=== PATIENT | female | born 1940 | race Caucasian/White ===

== ENCOUNTER 2018-06-19 12:39 | Emergency (ER) | payer MEDICARE ==
--- NOTE | 2018-06-19 14:31 | Emergency Department Record ---
History of Present Illness - General Chief complaint: Extremity Problem Stated complaint: RT HIP/LEG PAIN Time Seen by Provider: 06/19/18 14:13 Mode of Arrival: Ambulatory - History of Present Illness Initial comments: right hip pain and buzzy in the head and she feels it is in her whole body and slight headache Onset/Timin -: Days(s) Location: Left, Right Radiation: Proximal Severity scale (1-10): 10 Quality: Aching, Sharp Consistency: Getting worse Improves with: Nothing Worsens with: Nothing - Related Data Home Medications Medication Instructions Recorded Confirmed Last Taken Biotin 10,000 mcg PO DAILY 06/19/18 06/19/18 1 Day Ago ~06/18/18 Marcial/D3/Mag11/Zinc/Regulatory Auditor/Natan/Bor 1 each PO DAILY 06/19/18 06/19/18 1 Day Ago [Caltrate 600+D Plus Tablet] ~06/18/18 Calcitonin,[place],Synthetic 200 unit NS DAILY 06/19/18 06/19/18 1 Day Ago [Miacalcin] ~06/18/18 Cholecalciferol (Vitamin D3) 2,000 unit PO DAILY 06/19/18 06/19/18 1 Day Ago [Vitamin D3] ~06/18/18 Clopidogrel Bisulfate [Clopidogrel] 75 mg PO DAILY 06/19/18 06/19/18 1 Day Ago ~06/18/18 Cyanocobalamin (Vitamin B-12) 2,500 mcg PO DAILY 06/19/18 06/19/18 1 Day Ago [Vitamin B12] ~06/18/18 Donepezil HCl [Aricept] 5 mg PO DAILY 06/19/18 06/19/18 1 Day Ago ~06/18/18 Memantine HCl [Namenda] 10 mg PO BID 06/19/18 06/19/18 1 Day Ago ~06/18/18 Metoprolol Tartrate 12.5 mg PO DAILY 06/19/18 06/19/18 1 Day Ago ~06/18/18 Nifedipine [Nifedipine ER] 30 mg PO DAILY 06/19/18 06/19/18 1 Day Ago ~06/18/18 Rosuvastatin Calcium 5 mg PO DAILY 06/19/18 06/19/18 1 Day Ago ~06/18/18 Sertraline HCl [Zoloft] 25 mg PO DAILY 06/19/18 06/19/18 1 Day Ago ~06/18/18 Previous Rx's Medication Instructions Recorded Ascorbic Acid/Ascorbate Sodium 500 mg PO DAILY #30 tab.chew 06/19/18 [Vit C-Tamika Hips 500 mg Chew Tb] Ferrous Sulfate 325 mg PO DAILY #30 tab 06/19/18 Prednisone [Prednisone 10Mg] 10 mg PO ASDIR #30 tab 06/19/18 Allergies Allergy/AdvReac Type Severity Reaction Status Date / Time aspirin AdvReac ABDOMINAL Verified 06/19/18 13:54 PAIN Travel Screening - Travel/Exposure Within Last 30 Days Have you traveled within the last 30 days?: No - Travel/Exposure Within Last Year Have you traveled outside the [place] in the last year?: No - Additonal Travel Details Have you been exposed to anyone with a communicable illness?: No - Travel Symptoms Symptom Screening: None Review of Systems Reviewed: No additional complaints except as noted below Constitutional: Reports: As per HPI. Denies: Chills, Fever, Malaise, Night sweats, Weakness, Weight change Eyes: Reports: As per HPI. Denies: Eye discharge, Eye pain, Photophobia, Vision change ENT: Reports: As per HPI. Denies: Congestion, Dental pain, Ear pain, Epistaxis , Hearing loss, Throat pain Respiratory: Reports: As per HPI. Denies: Cough, Dyspnea, Hemoptysis, Stridor, Wheezes Cardiovascular: Reports: As per HPI. Denies: Arrhythmia, Chest pain, Dyspnea on exertion, Edema, Murmurs, Orthopnea, Palpitations, Paroxysmal nocturnal dyspnea, Rheumatic Fever, Syncope Endocrine: Reports: As per HPI. Denies: Fatigue, Heat or cold intolerance, Polydipsia, Polyuria Gastrointestinal: Reports: As per HPI. Denies: Abdominal pain, Constipation, Diarrhea, Hematemesis, Hematochezia, Melena, Nausea, Vomiting Genitourinary: Reports: As per HPI. Denies: Abnormal menses, Discharge, Dyspareunia, Dysuria, Frequency, Hematuria, Incontinence, Retention, Urgency Musculoskeletal: Reports: As per HPI. Denies: Arthralgia, Back pain, Gout, Joint swelling, Myalgia, Neck pain Skin: Reports: As per HPI. Denies: Bruising, Change in color, Change in hair/ nails, Lesions, Pruritus, Rash Neurological: Reports: As per HPI. Denies: Abnormal gait, Confusion, Headache, Numbness, Paresthesias, Seizure, Tingling, Tremors, Vertigo, Weakness Psychiatric: Reports: As per HPI. Denies: Anxiety, Auditory hallucinations, Depression, Homicidal thoughts, Suicidal thoughts, Visual hallucinations Hematological/Lymphatic: Reports: As per HPI. Denies: Anemia, Blood Clots, Easy bleeding, Easy bruising, Swollen glands Past Medical History - SOCIAL HISTORY Smoking Status: Never smoker Alcohol Use: None Drug Use: None - RESPIRATORY Hx Respiratory Disorders: No - CARDIOVASCULAR Hx Cardio Disorders: Yes Hx Hypertension: Yes Comment:: CABG, valve - NEURO Hx Neuro Disorders: Yes Hx Dementia: Yes - GI Hx Abdominal Pain: Yes Hx Reflux: Yes Hx Obstructive Bowel: Yes Hx Rectal Bleeding: Yes Hx Ulcer: Yes Comment:: dumping symdrome - Hx Renal Disease: Yes (stage 3) - ENDOCRINE Hx Diabetes: No Hx Thyroid Disease: Yes - PSYCH Hx Anxiety: Yes Family Medical History Any Significant Family History?: Yes Physical Exam - General General Appearance: Alert, Oriented x3, Cooperative, No acute distress - Head Head exam: Normal inspection - Eye Eye exam: Normal appearance, PERRL Pupils: Normal accommodation - ENT ENT exam: Normal exam, Mucous membranes moist, Normal external ear exam, Normal orophraynx, TM's normal bilaterally Ear exam: Normal external inspection. negative: External canal tenderness Nasal Exam: Normal inspection. negative: Discharge, Sinus tenderness Mouth exam: Normal external inspection, Tongue normal Teeth exam: Normal inspection. negative: Dental caries Throat exam: Normal inspection. negative: Tonsillar erythema, Tonsillar exudate - Neck Neck exam: Normal inspection, Full ROM. negative: Tenderness - Respiratory Respiratory exam: Normal lung sounds bilaterally. negative: Respiratory distress - Cardiovascular Cardiovascular Exam: Regular rate, Normal rhythm, Normal heart sounds - GI/Abdominal GI/Abdominal exam: Soft, Normal bowel sounds. negative: Tenderness - Rectal Rectal exam: Deferred - exam: Deferred - Extremities Extremities exam: Normal inspection, Full ROM, Normal capillary refill. negative: Tenderness - Back Back exam: Reports: Normal inspection, Full ROM. Denies: Muscle spasm, Rash noted, Tenderness - Neurological Neurological exam: Alert, Normal gait, Oriented X3, Reflexes normal - Psychiatric Psychiatric exam: Normal affect, Normal mood - Skin Skin exam: Dry, Intact, Normal color, Warm Course Vital Signs 06/19/18 13:15 Temperature 97.7 F Pulse Rate [ 75 Left] Respiratory 18 Rate Blood Pressure 162/70 [Left Arm] Pulse Ox 100 - Reevaluation(s) Reevaluation #1: rectal exam no blood seen on examing finger and brown mucous present 06/19/18 17:16 Medical Decision Making - Data Complexity MDM Data: Labs Ordered and/or Reviewed (hg 8.0), X-Ray Ordered and/or Reviewed ( ct head negative for acute process, hip neg for fractures) - Lab Data Result diagrams: 06/19/18 14:37 06/19/18 14:37 Disposition Clinical Impression: Hip pain, right Bursitis Qualifiers: Bursitis location: hip Hip bursitis location: trochanteric bursitis Laterality : right Qualified Code(s): M70.61 - Trochanteric bursitis, right hip Anemia Qualifiers: Anemia type: unspecified type Qualified Code(s): D64.9 - Anemia, unspecified Disposition: Home, Self-Care Condition: (1) Good Instructions: Hip Bursitis (ED), Anemia (ED) Additional Instructions: follow up with bassam Arnold in 1-2 weeks as schedule and sooner in hip not improving tylenol for pain Prescriptions: Ascorbic Acid/Ascorbate Sodium [Vit C-Tamika Hips 500 mg Chew Tb] 500 mg PO DAILY #30 tab.chew Ferrous Sulfate 325 mg PO DAILY #30 tab Prednisone [Prednisone 10Mg] 10 mg PO ASDIR #30 tab Forms: Patient Portal Access Time of Disposition: 17:23 Quality - Quality Measures Quality Measures: N/A - Blood Pressure Screening Does Patient Have Any of the Following: No, Active Dx of HTN Blood Pressure Classification: Hypertensive Reading Systolic Measurement: 150 Diastolic Measurement: 71 Screening for High Blood Pressure: Patient Exclusion, Hx of HTN [G9744]
[2018-06-19 14:42] LABS: BASO % 0.5 % (0-6); EOS % 0.3 % (0-6); GRAN % 71.4 % (47-80); HEMATOCRIT 27.9 % (35.0-47.0); LYMPH % 17.9 % (16-45); MEAN CELL VOLUME 79.9 fl (81-97); MEAN CORPUSCULAR HEMOGLOBIN 22.9 pg (27-33); MEAN PLATELET VOLUME 9.4 fl (7.4-10.4); MONO % 9.9 % (0-9); PLATELET COUNT 276 K/uL (130-400); RED BLOOD COUNT 3.49 M/uL (3.80-5.40); RED CELL DISTRIBUTION WIDTH 15.9 % (11.5-14.5); WHITE BLOOD COUNT W/O DIFF 5.9 K/uL (4.2-12.2)
[2018-06-19 14:48] LABS: MEAN CORPUSCULAR HGB CONC 28.7 g/dl (32-36)
[2018-06-19 15:02] LABS: BLOOD UREA NITROGEN 17 mg/dL (8-23); CREATININE 1.2 mg/dL (0.5-0.9); EST GLOMERULAR FILTRATION RATE 46 mL/min
[2018-06-19 15:05] LABS: GLUCOSE,RANDOM 99 mg/dL (74-109)
[2018-06-19 15:08] LABS: C-REACTIVE PROTEIN < 0.04 mg/dL (<0.5)
[2018-06-19 16:03] LABS: URINE APPEARANCE CLEAR; URINE BILIRUBIN NEGATIVE (NEGATIVE); URINE BLOOD NEGATIVE (NEGATIVE); URINE COLOR YELLOW; URINE GLUCOSE (UA) NEGATIVE (NEGATIVE); URINE KETONE NEGATIVE (NEGATIVE); URINE LEUKOCYTE ESTERASE NEGATIVE (NEGATIVE); URINE NITRITE NEGATIVE (NEGATIVE); URINE PROTEIN NEGATIVE (NEGATIVE); URINE UROBILINOGEN 0.2 E.U./dL (0.20 - 1.00)
[2018-06-19] MEDS: PREDNISONE 20 MG TAB PO ONE (17:34)
--- NOTE | 2018-06-20 14:58 | CT SCAN REPORT ---
EXAM: CT OF THE HEAD WITHOUT CONTRAST HISTORY: HEADACHES AND ABNORMAL SOUND IN THE EARS. TECHNIQUE: Noncontrast images of the brain are obtained. FINDINGS: The brain volume is mildly reduced. There is moderate periventricular small vessel ischemic change without acute transcortical infarction. Left basal ganglia calcifications are present. There is no evidence of extraaxial fluid collection. The skull is intact. The paranasal sinuses are clear. IMPRESSION: ATROPHY AND SMALL VESSEL ISCHEMIC CHANGES WITHOUT AN ACUTE INTRACRANIAL PROCESS. JOB NUMBER: [id number] [facility]
--- NOTE | 2018-06-21 05:19 | RADIOLOGY REPORT ---
EXAM: RIGHT HIP HISTORY: PAIN. TECHNIQUE: AP view of the pelvis and lateral view of the right hip were obtained. FINDINGS: The hips are symmetric. There are no fractures. There is no erosive or destructive process. There is mild osteopenia. There are moderate degenerative changes in the lower lumbar spine. IMPRESSION: NO EVIDENCE OF ACUTE OSSEOUS PATHOLOGY. JOB NUMBER: [id number] [facility]
== END 2018-06-19 17:38 | disposition home or self-care (01) ==
LOC: ER 12:39
DX: M70.61 Trochanteric bursitis, right hip (principal); D64.9 Anemia, unspecified; R51 Headache; I10 Essential (primary) hypertension
CPT/HCPCS: 99283; 99284; 84550; 83540; 85025; 85730; 86140; 80048; 81003; 82272; 73502; 70450; J7512

== ENCOUNTER 2018-11-19 23:56 | Emergency (ER) | payer MEDICARE ==
[2018-11-20] MEDS ORDERED: 0.9 % SODIUM CHLORIDE 1,000 ML BAG IV ONE (00:28)
--- NOTE | 2018-11-20 00:35 | Emergency Department Record ---
History of Present Illness - General Chief complaint: Weakness Stated complaint: DISORIENTED,SWEATS,WEAK Time Seen by Provider: 11/20/18 00:23 Source: Patient, Family Mode of Arrival: Ambulatory Limitations: No limitations - History of Present Illness Initial comments: The patient is here due to generalized weakness. She has a hx of chronic diarrhea and it has been worsening over the last 2 weeks. She is having multiple episodes of loose stools a day for the last 2 weeks. The patient's daughter states the problem has been getting worse over the last 6 months and she has been steadily loosing weight. 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 Now she is feeling weaker than normal and a little disoriented at times. There has been no hx of fever, vomiting, blood in the stool, oral antibiotic use, or back pain. The patient is having intermittent crampy abdominal pain at times. MD Complaint: Generalized weakness Onset/Timin -: Week(s) Consistency: Getting worse Improves with: None Worsens with: None - Related Data Home Medications Medication Instructions Recorded Confirmed Last Taken Dicyclomine HCl 10 mg PO BID 11/20/18 11/20/18 Unknown Previous Rx's Medication Instructions Recorded Ascorbic Acid/Ascorbate Sodium 500 mg PO DAILY #30 tab.chew 06/19/18 [Vit C-Tamika Hips 500 mg Chew Tb] Ferrous Sulfate 325 mg PO DAILY #30 tab 06/19/18 Allergies Allergy/AdvReac Type Severity Reaction Status Date / Time aspirin AdvReac ABDOMINAL Verified 06/19/18 13:54 PAIN Travel Screening - Travel/Exposure Within Last 30 Days Have you traveled within the last 30 days?: No Review of Systems Constitutional: Reports: Malaise. Denies: Chills, Fever Eyes: Denies: Eye discharge ENT: Denies: Congestion Respiratory: Denies: Cough, Dyspnea Cardiovascular: Denies: Chest pain Endocrine: Reports: Fatigue Gastrointestinal: Reports: Diarrhea. Denies: Nausea Genitourinary: Denies: Dysuria Musculoskeletal: Denies: Back pain Neurological: Denies: Abnormal gait Past Medical History - SOCIAL HISTORY Smoking Status: Never smoker Alcohol Use: None Drug Use: None - RESPIRATORY Hx Respiratory Disorders: No - CARDIOVASCULAR Hx Cardio Disorders: Yes Hx Hypertension: Yes Comment:: CABG, valve - NEURO Hx Neuro Disorders: Yes Hx Dementia: Yes - GI Hx Abdominal Pain: Yes Hx Reflux: Yes Hx Obstructive Bowel: Yes Hx Rectal Bleeding: Yes Hx Ulcer: Yes Comment:: dumping symdrome - Hx Renal Disease: Yes (stage 3) - ENDOCRINE Hx Diabetes: No Hx Thyroid Disease: Yes - PSYCH Hx Anxiety: Yes - HEMATOLOGY/ONCOLOGY Hx Hematology/Oncology Disorders: No Family Medical History Any Significant Family History?: No Physical Exam - General General Appearance: Alert, Oriented x3, Cooperative, No acute distress - Head Head exam: Atraumatic, Normocephalic, Normal inspection - Eye Eye exam: Normal appearance, PERRL, EOMI - ENT Throat exam: Normal inspection. negative: Tonsillar erythema, Tonsillar exudate - Neck Neck exam: Normal inspection, Full ROM. negative: Tenderness - Respiratory Respiratory exam: Normal lung sounds bilaterally. negative: Respiratory distress - Cardiovascular Cardiovascular Exam: Regular rate, Normal rhythm, Normal heart sounds - GI/Abdominal GI/Abdominal exam: Soft, Tenderness (There is mild diffuse tenderness in all 4 quads.). negative: Rebound, Rigid - Extremities Extremities exam: Normal inspection, Full ROM, Normal capillary refill. negative: Tenderness - Neurological Neurological exam: Alert, Normal gait, Oriented X3. negative: Abnormal gait, Altered, Motor sensory deficit - Skin Skin exam: negative: Rash Course Vital Signs 11/20/18 00:10 Temperature 97.8 F Pulse Rate [ 81 Left] Respiratory 16 Rate Blood Pressure 129/56 [Left Arm] Pulse Ox 99 - Reevaluation(s) Reevaluation #1: The patient is doing OK. She has had no nausea, vomiting, or diarrhea here in the ER. 11/20/18 02:00 Reevaluation #2: I did discuss the results of the CT scan and did discuss the need for stool for the Cdiff test. Since the patient is unable to give us a specimen we will order one as an outpatient. The patient is to see her GI specialist later this week for recheck and to redraw her Lipase and liver enzymes. 11/20/18 02:47 Medical Decision Making - Data Complexity MDM Data: Labs Ordered and/or Reviewed, X-Ray Ordered and/or Reviewed - Lab Data Result diagrams: 11/20/18 00:15 11/20/18 00:15 - Radiology Data Radiology results: Report reviewed (Abd CT: Suspected mild wall thickening in nondilated small bowel in the L upper outer and central abdomen vs underdistension suspicious for subtle evidence of enteritis.) Disposition Disposition: Discharge Clinical Impression: Diarrhea Qualifiers: Diarrhea type: unspecified type Qualified Code(s): R19.7 - Diarrhea, unspecified Disposition: Home, Self-Care Condition: (2) Stable Instructions: Chronic Diarrhea (ED) Additional Instructions: Please continue your regular medicines and please see your GI specialist in 3-5 days. Also have your liver enzymes and Lipase rechecked. Return to the ER for any worsening pain, fever, vomiting, or bleeding. Forms: Patient Portal Access Time of Disposition: 02:50 Quality - Quality Measures Quality Measures: N/A - Blood Pressure Screening View Details: Yes Does Patient Have Any of the Following: No Blood Pressure Classification: Normal BP Reading Systolic Measurement: 113 Diastolic Measurement: 61 Screening for High Blood Pressure: < Normal BP, F/U Not Required > [G8783]
[2018-11-20 00:43] LABS: ABSOLUTE NEUTROPHIL COUNT 4.44; BASO % 1.2 % (0-6); EOS % 2.2 % (0-6); GRAN % 59.9 % (47-80); HEMATOCRIT 39.8 % (35.0-47.0); HEMOGLOBIN 12.2 gm/dl (11.6-16.0); LYMPH % 24.5 % (16-45); MEAN CORPUSCULAR HEMOGLOBIN 30.3 pg (27-33); MEAN CORPUSCULAR HGB CONC 30.7 g/dl (32-36); MEAN PLATELET VOLUME 10.7 fl (7.4-10.4); MONO % 12.2 % (0-9); PLATELET COUNT 214 K/uL (130-400); RED BLOOD COUNT 4.02 M/uL (3.80-5.40); RED CELL DISTRIBUTION WIDTH 13.6 % (11.5-14.5); WHITE BLOOD COUNT W/O DIFF 7.4 K/uL (4.2-12.2)
[2018-11-20 00:52] LABS: BLOOD UREA NITROGEN 17 mg/dL (8-23); EST GLOMERULAR FILTRATION RATE 57 mL/min
[2018-11-20 00:53] LABS: LIPASE 110 U/L (13-60); TOTAL PROTEIN 6.8 g/dL (6.6-8.7)
[2018-11-20 00:55] LABS: GLUCOSE,RANDOM 99 mg/dL (74-109)
[2018-11-20 00:57] LABS: ALBUMIN 4.3 g/dL (4.0-5.0); ALKALINE PHOSPHATASE 68 U/L (35-104); ALT/SGPT 39 U/L (<33); AST/SGOT 82 U/L (10.0-35.0); BILIRUBIN,DIRECT < 0.2 mg/dL (0-0.3)
[2018-11-20 01:07] LABS: URINE APPEARANCE CLEAR; URINE BILIRUBIN NEGATIVE (NEGATIVE); URINE BLOOD NEGATIVE (NEGATIVE); URINE COLOR YELLOW; URINE GLUCOSE (UA) NEGATIVE (NEGATIVE); URINE KETONE NEGATIVE (NEGATIVE); URINE LEUKOCYTE ESTERASE NEGATIVE (NEGATIVE); URINE NITRITE NEGATIVE (NEGATIVE); URINE PROTEIN NEGATIVE (NEGATIVE); URINE UROBILINOGEN 0.2 E.U./dL (0.20 - 1.00)
--- NOTE | 2018-11-22 09:01 | CT SCAN REPORT ---
EXAM: CT OF THE ABDOMEN AND PELVIS WITHOUT CONTRAST HISTORY: DIARRHEA FOR TWO WEEKS. BURNING ABDOMINAL PAIN. WEAKNESS. TECHNIQUE: Following oral contrast administration, helical CT examination of the abdomen and pelvis was performed without intravenous contrast. Lack of IV contrast utilization limits evaluation of the solid viscera and bowel wall respectively. FINDINGS: Mild dependent atelectasis is demonstrated in each lung base. The lung bases are otherwise clear. Post median sternotomy changes are present. Small calcifications are scattered within the spleen and to a lesser degree the liver consistent with healed granulomatous disease. No suspicious focal abnormality within the liver nor spleen. The pancreas is without definite evidence of mass though evaluation of the margins of the pancreatic head is limited by contiguous unopacified duodenum and IVC. The gallbladder is surgically absent. There is prominence of the common hepatic/common bile duct down to the level of the pancreatic head/ampulla. This measures approximately 11 mm. No definite obstructing lesion. This may just relate to a physiologic response to surgical absence of the gallbladder. Correlation with serum bilirubin and alkaline phosphatase levels is recommended. No nephrolithiasis nor renal mass. The intrarenal collecting system on the right appears borderline to mildly prominent without an obstructing lesion noted. The etiology of this is uncertain. 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 No definite intraabdominal nor retroperitoneal lymphadenopathy. The uterus is surgically absent. No pelvic mass, lymphadenopathy, or free pelvic fluid. No intrinsic urinary bladder abnormality is noted. No gross bowel dilatation. There is possible mild wall thickening of a few loops of small bowel in the left mid to upper abdomen versus incomplete distention. Nonspecific enteritis cannot be excluded. No other bowel wall thickening is seen. The appendix is not visualized with confidence. No inflammatory changes are, however, noted in its expected location. No free intraperitoneal air. There is diffuse atherosclerosis without aneurysmal dilatation of the abdominal aorta nor iliac arteries. Post surgical changes of the stomach are identified with Billroth Type 2 anastomosis suspected. The folds of the proximal stomach appear borderline to mildly prominent though this may relate to incomplete distention. No suspicious lytic or blastic bone lesion. There are degenerative changes scattered throughout the visualized spine with dextroconvex curvature centered at the L4 level and secondary levocurvature centered at the thoracolumbar junction. There is Grade 1 anterolisthesis of L3 on L4 likely relating to facet arthropathy. Mild chronic appearing anterior wedging of L3 is identified involving the superior end plate. Post laminectomy changes are noted on the left at the L4-L5 level. IMPRESSION: 1. APPARENT MILD WALL THICKENING OF A FEW LOOPS OF SMALL BOWEL IN THE LEFT MID TO UPPER ABDOMEN. WHILE THIS MAY RELATE TO LACK OF DISTENTION AND INCOMPLETE OPACIFICATION, MILD NONSPECIFIC ENTERITIS CANNOT BE EXCLUDED. 2. POST SURGICAL CHANGES OF THE STOMACH. APPARENT BORDERLINE TO MILD MUCOSAL FOLD THICKENING IN THE PROXIMAL STOMACH LIKELY DUE TO INCOMPLETE DISTENTION THOUGH GASTRITIS IS NOT EXCLUDED. 3. STATUS POST CHOLECYSTECTOMY AND HYSTERECTOMY. 4. MILD PROMINENCE OF THE CENTRAL BILIARY TREE, DISCUSSED ABOVE. 5. BORDERLINE TO MILD PROMINENCE OF THE INTRARENAL COLLECTING SYSTEM ON THE RIGHT, ALSO DISCUSSED ABOVE. 6. 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 JOB NUMBER: [id number] [facility]
== END 2018-11-20 03:05 | disposition home or self-care (01) ==
LOC: ER 23:56
DX: R19.7 Diarrhea, unspecified (principal); R53.1 Weakness; R94.5 Abnormal results of liver function studies; R74.8 Abnormal levels of other serum enzymes; I10 Essential (primary) hypertension
CPT/HCPCS: 99284 ×2; 83605; 83690; 85025; 80076; 80048; 81003; 74177; Q9967; 74176; J7030

== ENCOUNTER 2019-07-03 17:49 | Emergency (ER) | payer MEDICARE ==
[2019-07-03] MEDS ORDERED: KETOROLAC 30 MG/ML VIAL IVP ONE (18:02)
--- NOTE | 2019-07-03 18:07 | Emergency Department Record ---
History of Present Illness - General Chief complaint: Lower Extremity Pain Stated complaint: RT HIP PAIN Time Seen by Provider: 07/03/19 17:53 Source: Patient Mode of Arrival: Wheelchair Limitations: No limitations - History of Present Illness Initial comments: 79 yo female presents to ED for evaluation of pain to the right hip that began earlier today. Daughter at the bedside reports possible injury after striking her hip on a bedpost earlier today. Patient denies fevers, chills, or recent illness, patient also denies taking anything at home for her symptoms. MD Complaint: Joint pain Onset/Timin -: Days(s) Location: Right, Other History of Same: No Radiation: Distal Severity scale (1-10): 9 Quality: Sharp Consistency: Constant Improves with: Immobilization Worsens with: Exertion, Walking, Weight bearing Associated Symptoms: Denies other symptoms - Related Data Previous Rx's Medication Instructions Recorded Ascorbic Acid/Ascorbate Sodium 500 mg PO DAILY #30 tab.chew 06/19/18 [Vit C-Tamika Hips 500 mg Chew Tb] Ferrous Sulfate 325 mg PO DAILY #30 tab 06/19/18 Allergies Allergy/AdvReac Type Severity Reaction Status Date / Time aspirin AdvReac ABDOMINAL Verified 07/03/19 17:57 PAIN Travel Screening - Travel/Exposure Within Last 30 Days Have you traveled within the last 30 days?: No Review of Systems Constitutional: Denies: Chills, Fever, Malaise, Night sweats Eyes: Denies: Eye discharge, Eye pain ENT: Denies: Congestion, Ear pain, Epistaxis Respiratory: Denies: Cough, Dyspnea Cardiovascular: Denies: Chest pain, Dyspnea on exertion Endocrine: Denies: Fatigue, Heat or cold intolerance Gastrointestinal: Denies: Abdominal pain, Nausea, Vomiting Genitourinary: Denies: Incontinence, Retention Musculoskeletal: Reports: Arthralgia. Denies: Back pain, Gout Skin: Denies: Bruising, Change in color Neurological: Denies: Abnormal gait, Confusion, Headache Psychiatric: Denies: Anxiety Hematological/Lymphatic: Reports: Easy bleeding, Easy bruising. Denies: Anemia, Blood Clots Past Medical History - SOCIAL HISTORY Smoking Status: Never smoker Alcohol Use: None Drug Use: None - RESPIRATORY Hx Respiratory Disorders: No - CARDIOVASCULAR Hx Cardio Disorders: Yes Hx Hypertension: Yes Comment:: CABG, valve - NEURO Hx Neuro Disorders: Yes Hx Dementia: Yes - GI Hx GI Disorders: Yes Hx Abdominal Pain: Yes Hx Reflux: Yes Hx Obstructive Bowel: Yes Hx Rectal Bleeding: Yes Hx Ulcer: Yes Comment:: dumping symdrome - Hx Genitourinary Disorders: Yes Hx Renal Disease: Yes (stage 3) - ENDOCRINE Hx Endocrine Disorders: Yes Hx Diabetes: No Hx Thyroid Disease: Yes - MUSCULOSKELETAL Hx Musculoskeletal Disorders: Yes - PSYCH Hx Psych Problems: Yes Hx Anxiety: Yes - HEMATOLOGY/ONCOLOGY Hx Hematology/Oncology Disorders: No Family Medical History Any Significant Family History?: No Physical Exam - General General Appearance: Alert, Oriented x3, Cooperative, Moderate distress Limitations: No limitations - Head Head exam: Atraumatic, Normocephalic, Normal inspection Head exam detail: negative: Abrasion, Contusion, Peña's sign, General tenderness, Hematoma, Laceration - Eye Eye exam: Normal appearance. negative: Conjunctival injection, Periorbital swelling, Periorbital tenderness, Scleral icterus - ENT Ear exam: negative: Auricular hematoma, Auricular trauma Nasal Exam: negative: Active bleeding, Discharge, Dried blood, Foreign body Mouth exam: negative: Drooling, Laceration, Muffled voice, Tongue elevation - Neck Neck exam: Normal inspection. negative: Meningismus, Tenderness - Respiratory Respiratory exam: Normal lung sounds bilaterally. negative: Respiratory distress, Rhonchi, Stridor, Wheezes - Cardiovascular Cardiovascular Exam: Regular rate, Normal rhythm, Normal heart sounds - GI/Abdominal GI/Abdominal exam: Soft. negative: Distended, Rebound, Rigid, Tenderness - Rectal Rectal exam: Deferred - exam: Deferred - Extremities Extremities exam: Tenderness, Other (TTP along the right hip laterally and posteriorly, no erythema present, pain to palpation along the distal aspect of the right femur). negative: Calf tenderness, Pedal edema - Back Back exam: Denies: CVA tenderness (R), CVA tenderness (L) - Neurological Neurological exam: Alert, Normal gait, Oriented X3 - Psychiatric Psychiatric exam: Normal affect, Normal mood - Skin Skin exam: Normal color. negative: Abrasion Type of lesion: negative: abrasion Course Vital Signs 07/03/19 17:58 Temperature 97.6 F Pulse Rate 67 Respiratory 20 Rate Blood Pressure 187/81 Pulse Ox 99 - Reevaluation(s) Reevaluation #1: 07/03/19 18:41 Laboratory studies were reviewed and appear grossly unremarkable for an acute process. Reevaluation #2: 07/03/19 19:39 Left femur: Osteopneia No fracture noted CT Pelvis: Osteopenia, no acute fracture Patient and her family members were updated on all results, will perform ambulation trial. Reevaluation #3: 07/03/19 20:11 Ambulation trial was performed, patient reports that her pain is improved. Patient appears stable for discharge at this time with her daughters at the bedside. Medical Decision Making - Lab Data Result diagrams: 07/03/19 18:05 07/03/19 18:05 Disposition Disposition: Discharge Clinical Impression: Right hip pain Disposition: Home, Self-Care Condition: (2) Stable Instructions: Hip Pain (ED) Additional Instructions: Return to ED if your symptoms worsen or if you have any concerns. Ibuprofen as directed for pain symptoms. Follow-up with your family doctor in 3-5 days as directed. Forms: Patient Portal Access Time of Disposition: 20:12 Quality - Quality Measures Quality Measures: N/A - Blood Pressure Screening Does Patient Have Any of the Following: No Blood Pressure Classification: Pre-Hypertensive BP Reading Systolic Measurement: 187 Diastolic Measurement: 81 Screening for High Blood Pressure: < Pre-Hypertensive BP, F/U Documented > [G8950] Pre-Hypertensive Follow-up Interventions: Referral to alternative/primary care provider.
[2019-07-03] MEDS ORDERED: 0.9 % SODIUM CHLORIDE 1000ML 500 ML IV SCH (18:15)
[2019-07-03 18:21] LABS: ABSOLUTE NEUTROPHIL COUNT 3.06; BASO % 0.6 % (0-6); EOS % 2.3 % (0-6); GRAN % 57.8 % (47-80); HEMATOCRIT 38.7 % (35.0-47.0); HEMOGLOBIN 12.1 gm/dl (11.6-16.0); LYMPH % 29.3 % (16-45); MEAN CELL VOLUME 100.8 fl (81-97); MEAN CORPUSCULAR HEMOGLOBIN 31.5 pg (27-33); MEAN CORPUSCULAR HGB CONC 31.3 g/dl (32-36); MEAN PLATELET VOLUME 10.2 fl (7.4-10.4); PLATELET COUNT 190 K/uL (130-400); RED BLOOD COUNT 3.84 M/uL (3.80-5.40); RED CELL DISTRIBUTION WIDTH 12.8 % (11.5-14.5); WHITE BLOOD COUNT W/O DIFF 5.3 K/uL (4.2-12.2)
[2019-07-03 18:27] LABS: BLOOD UREA NITROGEN 18 mg/dL (8-23); CREATININE 0.9 mg/dL (0.5-0.9); EST GLOMERULAR FILTRATION RATE > 60 mL/min
[2019-07-03 18:30] LABS: GLUCOSE,RANDOM 81 mg/dL (74-109)
[2019-07-03 18:34] LABS: C-REACTIVE PROTEIN < 0.03 mg/dL (<0.5)
[2019-07-03 18:55] LABS: ERYTHROCYTE SEDIMENTATION RATE 16 mm/hr (0-30)
--- NOTE | 2019-07-03 19:34 | RADIOLOGY REPORT ---
EXAMINATION: Right Femur, Two Views EXAM DATE: 07/03/2019 7:12 PM INDICATION: Pain ENCOUNTER: Initial FINDINGS: Comparison with 06/19/2018. Osteopenia is again noted. No fracture or other acute bone abnormality. Dictated by: Norbert Abarca MD on 07/03/2019 7:28 PM. .
--- NOTE | 2019-07-03 19:39 | CT SCAN REPORT ---
EXAMINATION: CT Pelvis without Contrast EXAM DATE: 07/03/2019 7:13 PM TECHNIQUE: Spiral CT images were done from the top of the iliac crests to the ischial tuberosities wi thout intravenous contrast. Sagittal and coronal 2-D reconstructions were made from source images. INDICATION: Pain COMPARISON: 11/20/2018. FINDINGS: Evaluation of solid organs is degraded due to lack of intravenous contrast. Osteopenia is again noted. No acute bone abnormality or change from previous. No evidence of fracture . 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 Previous hysterectomy. IMPRESSION: 1. No acute abnormality. Dictated by: Norbert Abarca MD on 07/03/2019 7:32 PM. .
== END 2019-07-03 20:29 | disposition home or self-care (01) ==
LOC: ER 17:49
DX: G89.11 Acute pain due to trauma (principal); M25.551 Pain in right hip; I10 Essential (primary) hypertension; F03.90 Unspecified dementia, unspecified severity, without behavioral disturbance, psychotic disturbance, mood disturbance, and anxiety
CPT/HCPCS: 99284 ×2; 96374; 85025; 85651; 86140; 80048; 73552; 72192; J1885; J7030